=== PATIENT | male | born 1985 ===

== ENCOUNTER 2018-02-10 16:40 | Emergency (ER) | payer OTHER ==
[~2018-02-10] VITALS: Ht 177.8 cm; Wt 94.3 kg
[~2018-02-10 16:40] MED LIST: FLEXERIL10 MG PO; IBUPROFEN800 MG PO; NABUMETONE750 MG PO; ORPH100T PO
== END 2018-02-10 19:42 | disposition home or self-care (01) ==
LOC: ER 16:40
DX: B25.9 Cytomegaloviral disease, unspecified (principal); B34.9 Viral infection, unspecified